=== PATIENT | female | born 1975 | race Hispanic/Latino ===

== ENCOUNTER 2018-05-27 13:08 | Emergency (ER) | payer BC ==
[2018-05-27] MEDS ORDERED: METOCLOPRAMIDE 10 MG/2mL INJ ONE (13:57)
[2018-05-27] MEDS ORDERED: KETOROLAC 30 MG/ML INJ ONE (13:57)
[2018-05-27] MEDS ORDERED: DIPHENHYDRAMINE 12.5MG/5ML LIQ ONE (13:57)
--- NOTE | 2018-05-27 14:38 | ER ---
Nurse's Notes [facility] Name: Kim Vines Age: 43 yrs Sex: Female : 1975 Arrival Date: 05/27/2018 Time: 13:13 Bed 7 Private MD: None, None Diagnosis: Migraine Presentation: 05/27 13:14 Presenting complaint: states: frontal headache that started this morning. c/o sv photophobia. Transition of care: patient was not received from another setting of care. Onset of symptoms was May 27, 2018. Care prior to arrival: Medication(s) given: Tylenol, taken this morning around 0740. 13:14 Method Of Arrival: Ambulatory sv 13:14 Acuity: CATARINA 3 sv Historical: - Allergies: 13:15 No Known Allergies; sv - PMHx: 13:15 None; sv - PSHx: 13:15 ; sv - Social history:: Smoking status: Patient uses tobacco products, denies chronic smoking, but will smoke occasionally. - Ebola Screening: : No symptoms or risks identified at this time. Screenin:15 Abuse screen: Denies threats or abuse. Denies injuries from another. Nutritional hb screening: No deficits noted. Tuberculosis screening: No symptoms or risk factors identified. Fall Risk None identified. Assessment: 14:03 General: Appears in no apparent distress. comfortable, well groomed, well developed, sg well nourished, Behavior is calm, cooperative, appropriate for age. Pain: Complains of pain in head and back Pain does not radiate. Neuro: Level of Consciousness is awake, alert, obeys commands, Oriented to person, place, time, situation, Speech is normal, Facial symmetry appears normal, Reports headache in entire frontal area, occipital area. Cardiovascular: Heart tones S1 S2 present Patient's skin is warm and dry. Chest pain is denied. Respiratory: Airway is patent Respiratory effort is even, unlabored, Respiratory pattern is regular, symmetrical. GI: Abdomen is round non-distended. : No signs and/or symptoms were reported regarding the genitourinary system. EENT: No signs and/or symptoms were reported regarding the EENT system. Derm: Skin is intact, is healthy with good turgor, Skin is dry, Skin is normal, Skin temperature is warm. Musculoskeletal: No signs and/or symptoms reported regarding the musculoskeletal system. Vital Signs: 13:15 BP 106 / 71; Pulse 73; Resp 18; Temp 97.2; Pulse Ox 97% ; Height 5 ft. 4 in. (162.56 sv cm); Pain 8/10; ED Course: 13:13 Patient arrived in ED. mr 13:13 None, None is Private Physician. mr 13:14 Triage completed. sv 13:17 Arm band placed on left wrist. sv 13:25 Tramaine Abad [facility] is [facility]. jr8 13:25 Scout Palomo MD is Attending Physician. jr8 14:03 Victoriano Roe, RN is Primary Nurse. sg 14:05 Inserted saline lock: 20 gauge in right antecubital area, using aseptic technique. sg 14:37 Zhao Mckinney MD is Referral Physician. jr8 Administered Medications: 14:00 Drug: Reglan 10 mg Route: IVP; Site: right antecubital; sg 14:00 Drug: Benadryl 50 mg Route: PO; sg 14:00 Drug: TORadol 30 mg Route: IVP; Site: right antecubital; sg Outcome: 14:37 Discharge ordered by . jr8 14:44 Patient left the ED. bd Signatures: Darya Stewart Stephanie RN EBONI Victoriano Roe, RN EBONI Krystina Fitzpatrick mr Tramaine Abad PA PA Holly Washburn, EBONI LYN Corrections: (The following items were deleted from the chart) 13:17 13:14 Care prior to arrival: None. sv sv 13:17 13:15 Pulse 73bpm; Resp 18bpm; Pulse Ox 97%; Temp 97.2F; Height 5 ft. 4 in.; Pain 8/10; sv sv
--- NOTE | 2018-05-27 14:38 | EDPHYS ---
Physician Documentation [facility] Name: iKm Vines Age: 43 yrs Sex: Female : 1975 Arrival Date: 05/27/2018 Time: 13:13 Bed 7 Private MD: None, None ED Physician Scout Palomo HPI: 05/27 14:36 This 43 yrs old Female presents to ER via Ambulatory with complaints of jr8 Headache. 14:36 The patient complains of pain to the forehead. The patient describes the headache as jr8 throbbing. Onset: The symptoms/episode began/occurred acutely, today. Associated signs and symptoms: Pertinent positives: Photophobia. Severity of symptoms: At its worst the pain was moderate, in the emergency department the pain is unchanged. Headache History: The patient has had previous headaches and this one is similar to previous episodes. The symptoms are alleviated by nothing. the symptoms are aggravated by lights, movement, noise. The patient has experienced similar episodes in the past, a few times. The patient has not recently seen a physician. 14:37 Patient stated that she is having to strain more with her glasses. Thinks it may be jr8 giving her a migraine . Historical: - Allergies: 13:15 No Known Allergies; sv - PMHx: 13:15 None; sv - PSHx: 13:15 ; sv - Social history:: Smoking status: Patient uses tobacco products, denies chronic smoking, but will smoke occasionally. - Ebola Screening: : No symptoms or risks identified at this time. ROS: 14:36 Eyes: Negative for injury, pain, redness, and discharge, ENT: Negative for injury, jr8 pain, and discharge, Neck: Negative for injury, pain, and swelling, Cardiovascular: Negative for chest pain, palpitations, and edema, Respiratory: Negative for shortness of breath, cough, wheezing, and pleuritic chest pain, Abdomen/GI: Negative for abdominal pain, nausea, vomiting, diarrhea, and constipation, Back: Negative for injury and pain, MS/Extremity: Negative for injury and deformity, Skin: Negative for injury, rash, and discoloration. 14:36 Neuro: Positive for headache, Negative for altered mental status, dizziness, gait disturbance, hearing loss, loss of consciousness, numbness, seizure activity, speech changes, syncope, near syncope, tingling, tinnitus, tremor, visual changes, weakness. Exam: 14:36 Head/Face: Normocephalic, atraumatic. Eyes: Pupils equal round and reactive to light, jr8 extra-ocular motions intact. Lids and lashes normal. Conjunctiva and sclera are non-icteric and not injected. Cornea within normal limits. Periorbital areas with no swelling, redness, or edema. ENT: Nares patent. No nasal discharge, no septal abnormalities noted. Tympanic membranes are normal and external auditory canals are clear. Oropharynx with no redness, swelling, or masses, exudates, or evidence of obstruction, uvula midline. Mucous membranes moist. Neck: Trachea midline, no thyromegaly or masses palpated, and no cervical lymphadenopathy. Supple, full range of motion without nuchal rigidity, or vertebral point tenderness. No Meningismus. Chest/axilla: Normal chest wall appearance and motion. Nontender with no deformity. No lesions are appreciated. Cardiovascular: Regular rate and rhythm with a normal S1 and S2. No gallops, murmurs, or rubs. Normal PMI, no JVD. No pulse deficits. Respiratory: Lungs have equal breath sounds bilaterally, clear to auscultation and percussion. No rales, rhonchi or wheezes noted. No increased work of breathing, no retractions or nasal flaring. Abdomen/GI: Soft, non-tender, with normal bowel sounds. No distension or tympany. No guarding or rebound. No evidence of tenderness throughout. Back: No spinal tenderness. No costovertebral tenderness. Full range of motion. Skin: Warm, dry with normal turgor. Normal color with no rashes, no lesions, and no evidence of cellulitis. MS/ Extremity: Pulses equal, no cyanosis. Neurovascular intact. Full, normal range of motion. Neuro: Awake and alert, GCS 15, oriented to person, place, time, and situation. Cranial nerves II-XII grossly intact. Motor strength 5/5 in all extremities. Sensory grossly intact. Cerebellar exam normal. Normal gait. Vital Signs: 13:15 BP 106 / 71; Pulse 73; Resp 18; Temp 97.2; Pulse Ox 97% ; Height 5 ft. 4 in. (162.56 sv cm); Pain 8/10; MDM: 13:26 Patient medically screened. jr8 14:36 Data reviewed: vital signs, nurses notes, and as a result, I will discharge patient. jr8 Data interpreted: Pulse oximetry: on room air is 97 %. Interpretation: normal. Counseling: I had a detailed discussion with the patient and/or guardian regarding: the historical points, exam findings, and any diagnostic results supporting the discharge/admit diagnosis, the need for outpatient follow up, a family practitioner, to return to the emergency department if symptoms worsen or persist or if there are any questions or concerns that arise at home. Response to treatment: the patient's symptoms have resolved after treatment. 05/27 13:30 Order name: IV; Complete Time: 14:07 jr8 Administered Medications: 14:00 Drug: Reglan 10 mg Route: IVP; Site: right antecubital; sg 14:00 Drug: Benadryl 50 mg Route: PO; sg 14:00 Drug: TORadol 30 mg Route: IVP; Site: right antecubital; sg Disposition: 15:21 Co-signature as Attending Physician, Scout Palomo MD. rn Disposition: 05/27/18 14:37 Discharged to Home. Impression: Migraine. - Condition is Stable. - Discharge Instructions: Migraine Headache. - Medication Reconciliation Form, Thank You Letter, Antibiotic Education, Prescription Opioid Use form. - Follow up: Zhao Mckinney MD; When: 1 week; Reason: Recheck today's complaints, Continuance of care, Re-evaluation by your physician. - Problem is new. - Symptoms have improved. Signatures: Darya Stewart Stephanie, RN RN sv Gay, Steven, RN RN sg Nieto, Roman, MD MD rn Roszak, Josh, PA PA jr8 Corrections: (The following items were deleted from the chart) 14:44 14:37 05/27/2018 14:37 Discharged to Home. Impression: Migraine. Condition is Stable. bd Forms are Medication Reconciliation Form, Thank You Letter, Antibiotic Education, Prescription Opioid Use. Follow up: Zhao Mckinney; When: 1 week; Reason: Recheck today's complaints, Continuance of care, Re-evaluation by your physician. Problem is new. Symptoms have improved. jr8
== END 2018-05-27 14:44 | disposition home or self-care (01) ==
LOC: ER 13:08
DX: G43.909 Migraine, unspecified, not intractable, without status migrainosus (principal); Z72.0 Tobacco use
CPT/HCPCS: 96374; 96375; 99283; J2765